=== PATIENT | female | born 1990 | race Caucasian/White ===

== ENCOUNTER 2017-04-14 14:50 | Emergency (ER) | payer MEDICAID ==
[~2017-04-14] VITALS: Ht 162.6 cm; Wt 57.6 kg
[2017-04-14 15:03] VITALS: BP_SYST 131
[2017-04-14] MEDS ORDERED: MECLIZINE HCL 25 MG TABLET (ANITVERT) PO ONE (15:30)
[2017-04-14] MEDS ORDERED: ONDANSETRON 4 MG ODT TAB PO ONE (15:30)
[2017-04-14 15:36] LABS: BILIRUBIN,URINE NEGATIVE (NEGATIVE); BLOOD, URINE NEGATIVE (NEGATIVE); COLOR,URINE YELLOW (YELLOW); GLUCOSE,URINE NEGATIVE (NEGATIVE); KETONES,URINE NEGATIVE (NEGATIVE); LEUKOCYTE ESTERASE ,URINE TRACE (NEGATIVE); NITRITE, URINE NEGATIVE (NEGATIVE); PROTEIN URINE NEGATIVE (NEGATIVE); UROBILINOGEN,URINE 0.2 (0.2-1.0)
[2017-04-14 15:49] LABS: CLARITY/URINE SLIGHTLY HAZY (CLEAR)
[2017-04-14 16:10] LABS: BACTERIA,URINE MODERATE /HPF (None Seen); RBC,URINE NONE SEEN /HPF (0-3)
[2017-04-14 16:11] LABS: MUCUS,URINE None Seen /LPF (None Seen)
[2017-04-14 16:19] VITALS: BP_SYST 116
== END 2017-04-14 16:19 | disposition home or self-care (01) ==
LOC: SED 14:50
DX: H81.12 Benign paroxysmal vertigo, left ear (principal); R11.0 Nausea; R51 Headache
CPT/HCPCS: 81000; 81025; 87086; 99284; J8597; Q0162

== ENCOUNTER 2017-12-17 00:23 | Emergency (ER) | payer MEDICAID ==
[~2017-12-17] VITALS: Ht 162.6 cm; Wt 59.0 kg
[2017-12-17 00:30] VITALS: BP_SYST 133
[2017-12-17] MEDS ORDERED: NACL 0.9% 1,000 ML IV ONE ×2 (00:48→01:00)
[2017-12-17] MEDS ORDERED: DIPHENHYDRAMINE INJ 50 MG/ML VIAL IVP ONE (01:00)
[2017-12-17] MEDS ORDERED: ONDANSETRON HCL 4 MG/2 ML VIAL IVP ONE (01:00)
[2017-12-17 01:50] LABS: BILIRUBIN,URINE NEGATIVE (NEGATIVE); BLOOD, URINE NEGATIVE (NEGATIVE); CLARITY/URINE CLEAR (CLEAR); COLOR,URINE YELLOW (YELLOW); GLUCOSE,URINE NEGATIVE (NEGATIVE); KETONES,URINE NEGATIVE (NEGATIVE); LEUKOCYTE ESTERASE ,URINE NEGATIVE (NEGATIVE); NITRITE, URINE NEGATIVE (NEGATIVE); PROTEIN URINE NEGATIVE (NEGATIVE); UROBILINOGEN,URINE 0.2 (0.2-1.0)
[2017-12-17 01:53] LABS: BASOPHILS % (AUTO) 0.3 % (0.0-2.0); EOSINOPHILS # (AUTO) 0.1 K/uL (0.0-0.4); RED CELL DISTRIBUTION WIDTH 11.5 % (9.0-15.0)
[2017-12-17 02:10] LABS: EOSINOPHILS % (AUTO) 1.2 % (0.0-4.0); HEMATOCRIT 41.8 % (36-48); HEMOGLOBIN 14.6 g/dL (12.0-16.0); LYMPHOCYTES # (AUTO) 1.3 K/uL (1.0-5.5); LYMPHOCYTES % (AUTO) 16.8 % (20.5-51.5); MEAN CORPUSCULAR HEMOGLOBIN 33 pg (27-31); MEAN CORPUSCULAR HGB CONC 35 % (32-36); MEAN CORPUSCULAR VOLUME 93 fL (79.0-98.0); MONOCYTES # (AUTO) 0.5 K/uL (0.0-1.0); MONOCYTES % (AUTO) 6.7 % (1.7-9.3); NEUTROPHILS # (AUTO) 6.1 K/uL (1.8-7.7); PLATELET COUNT (AUTO) 237 K/uL (130-430)
[2017-12-17 02:18] LABS: BARBITURATE, URINE NEGATIVE (NEG <=200); BENZODIAZEPINE, URINE NEGATIVE (NEG <=150); CANNABINOID, URINE NEGATIVE (NEG <=50); COCAINE, URINE NEGATIVE (NEG <=150); METHAMPHETAMINES SCREEN,URINE NEGATIVE (NEG <=500); OPIATE, URINE NEGATIVE (NEG <=100); PHENCYCLIDINE SCREEN,URINE NEGATIVE (NEG <=25); UR TRICYCLIC ANTIDEPRESSANTS NEGATIVE (NEG <=300); URINE AMPHETAMINE NEGATIVE (NEG <=500); URINE METHADONE NEGATIVE (NEG <=200); URINE OXYCODONE SCREEN NEGATIVE (NEG <=100); URINE PROPOXYPHENE SCREEN NEGATIVE (NEG <=300)
[2017-12-17 02:23] LABS: ANION GAP 6 (5-15); CHLORIDE 104 mmol/L (98-107); CREATININE 0.93 mg/dL (0.55-1.30); GLUCOSE 114 mg/dL (70-99); POTASSIUM 3.8 mmol/L (3.5-5.1); SODIUM SERUM 137 mmol/L (136-145); UREA NITROGEN, BLOOD 19 mg/dL (8-21)
[2017-12-17 02:27] LABS: ALANINE AMINOTRANSFERASE 27 U/L (12-78); AMYLASE 65 U/L (0-100); ASPARTATE AMINOTRANSFERASE 16 U/L (10-37); LIPASE 141 U/L (73-393); TOTAL BILIRUBIN 0.3 mg/dL (0.0-1.0)
[2017-12-17 02:31] LABS: ALCOHOL, BLOOD < 3 mg/dL (<10); GFR AFRICAN AMERICAN 92 mL/min (>90)
[2017-12-17 03:23] VITALS: BP_SYST 119
== END 2017-12-17 03:23 | disposition home or self-care (01) ==
LOC: SED 00:23
DX: G44.209 Tension-type headache, unspecified, not intractable (principal); R42 Dizziness and giddiness; F17.200 Nicotine dependence, unspecified, uncomplicated
CPT/HCPCS: 36415; 71045; 80053; 80307; 81003; 81025; 82150; 82550; 83690; 84484; 85025; 85610; 85730; 93005; 96360; 99285; G0482; J2405; J7030; J1200